=== PATIENT | male | born 1980 | race Hispanic/Latino ===

== ENCOUNTER 2020-06-27 11:07 | Observation (INO) | payer SELFPAY ==
[~2020-06-27 11:07] MED LIST: Iopamidol-370 76% 500 ML 1 ML ONE
[2020-06-27 11:58] LABS: Bilirubin Negative (Negative); Blood, Urine Negative (Negative); Clarity Clear (Clear); Glucose, Urine (Dipstick) Normal (Negative); Ketone, Urine Negative (Negative); Leukocyte Negative Leu/uL (Negative); Nitrite Negative (Negative); Protein, Urine (Dipstick) Negative (Neg-Trace); Specific Gravity, Urine 1.018 (1.002-1.036); Urobilinogen Normal mg/dL (Less than 2)
--- NOTE | 2020-06-27 12:16 | CT ---
CT ABDOMEN AND PELVIS WITH IV CONTRAST 06/27/2020 CLINICAL INFORMATION: Lower abdominal pain with pain now in the epigastric region and right lower quadrant. COMPARISON: Noncontrast CT abdomen and pelvis on 06/01/2013 Technique: Multiple contiguous axial CT images are obtained through the abdomen and pelvis with IV contrast. Cor onal reformatted images are provided. FINDINGS: Lower Chest: Lung bases are clear. Vessels: Vascular calcifications are seen in the right iliac arteries. Abdominal aorta is normal in c aliber without evidence of an aortic dissection. Abdomen: Portal vein:Patent Gallbladder: Within normal limits for CT imaging. Liver: Diminished attenuation suggesting hepatic steatosis with minimal fatty sparing adjacent to the gallbladder. Spleen: within normal limits. Pancreas: There is minimal inflammatory stranding seen adjacent to the lower aspect of the pancreatic head and adjacent to the duodenum. Findings may be related to pancreatitis. There is no adjacent bowel wall thickening to suggest duodenitis. Adrenals: within normal limits. Kidneys: within normal limits. Bowel: Normal caliber. Appendix: The appendix is visualized and normal in caliber. Peritoneum: No ascites or free air; no fluid collection. Mesentery and Retroperitoneum: No enlarged mesenteric or retroperitoneal lymph nodes. Abdominal Wall: within normal limits. Pelvis: Reproductive Organs: No pelvic masses. Bladder: within normal limits. Bones: No suspicious lytic or sclerotic osseous lesions. IMPRESSION: 1. Mild inflammatory stranding seen adjacent to the region of the head of the pancreas and adjacent t o the second and third portions of the duodenum. Findings may be attributable to pancreatitis, and correlation with pancreatic enzymes is recommended. Duodenitis cannot be entirely excluded; although, there is no wall thickening involving the duodenum. No pancreatic or peripancreatic fluid collection is seen. 2. Hepatic steatosis. 3. No CT evidence of appendicitis. 4. Above findings discussed Dr. Power in the emergency department on 06/27/2020 at 1213 hours.
[2020-06-27 12:17] LABS: Hemoglobin 15.2 g/dL (14.0-18.0); Mean Corpuscular HGB CONC 35.5 g/dL (32.0-36.0); Mean Corpuscular Hemoglobin 30.5 pg (27.0-31.0); Mean Corpuscular Volume 85.9 fL (78.0-98.0); Red Blood Cell (RBC) Count 4.99 mill/uL (4.70-6.10)
[2020-06-27 12:23] LABS: #Eosinphils 0.1 thou/uL (0.0-0.7); #Lymphocytes 1.2 thou/uL (1.20-3.40); #Monocytes 0.3 thou/uL (0.11-0.59); #Neutrophils 5.7 thou/uL (1.40-6.50); %Basophils 0.5 % (0.0-1.0); %Eosinophils 1.6 % (0.0-10.0); %Lymphocytes 16.5 % (21.0-51.0); %Monocytes 3.7 % (0.0-10.0); %Neutrophils 77.7 % (42.0-75.0); Platelet Count 115 thou/uL (130-400); Platelet Morphology Comment Appears Decreased; RBC Distribution Width 12.7 % (11.5-14.5); White Blood Cell (WBC) Count 7.3 thou/uL (4.8-10.8)
[2020-06-27] MEDS ORDERED: Morphine 4 MG/ML VIAL ONE (12:53)
[2020-06-27] MEDS ORDERED: Ondansetron PF 4 MG/2 ML Vial ONE (12:53)
[2020-06-27 13:54] LABS: ALT (SGPT) 52 U/L (8-55); AST (SGOT) 37 U/L (5-34); Albumin 4.4 g/dL (3.5-5.0); Alkaline Phosphatase 83 U/L (40-110); Anion Gap 19 mmol/L (10-20); BUN (Urea Nitrogen) 15 mg/dL (8.9-20.6); Bilirubin, Total 0.4 mg/dL (0.2-1.2); Calc. Creatinine Clearance 0 mL/min (70-130); Calcium 8.9 mg/dL (7.8-10.44); Carbon Dioxide 20 mmol/L (22-29); Chloride 106 mmol/L (98-107); Globulin 3.6 g/dL (2.4-3.5); Glucose 136 mg/dL (70-105); Lipase 189 U/L (8-78); Potassium 4.5 mmol/L (3.5-5.1); Sodium 140 mmol/L (136-145)
[2020-06-27] MEDS ORDERED: Ondansetron PF 4 MG/2 ML Vial IVP PRN (17:20)
[2020-06-27] MEDS ORDERED: Acetaminophen 325 MG TAB PO PRN (17:20)
[2020-06-27] MEDS ORDERED: hydrALAZINE 20 MG/ML VIAL SLOW IVP PRN (17:22)
[2020-06-27] MEDS: Sodium Chloride 0.9% 1,000 ML IV SCH (17:49)
--- NOTE | 2020-06-27 19:29 | PDOC.HHP ---
Hospitalist HPI abdominal pain History of Present Illness: Patient is 40 year-old male with no known PMH who presents to the ED with abdominal pain. He says he started having RLQ/LLQ abdominal pain today. The pain radiates to hid RUQ and epigastric area. He denies N/V, diarrhea, fever or chills. He went to the clinic today and was sent to the ED for evaluation of possible appendicitis. He drinks alcohol occasionally. He has not seen a doctor for many years and does not take any prescribed medication. Allergies/Adverse Reactions: Allergy/AdvReac Type Severity Reaction Status Date / Time No Known Allergies Allergy Unverified 06/27/20 17:29 Past History: PMH: no known medical problem Surgical hx: ?surgery for kidney stone Family hx: Mother: DM Social hx: drinks alcohol occasionally. Denies smoking or drug use. Hospitalist HPI ROS Constitutional: denies: fever, chills Eyes: denies: vision change ENT: denies: throat pain Respiratory: denies: shortness of breath Cardiovascular: denies: chest pain Gastrointestinal: reports: abdominal pain. denies: nausea, vomiting, diarrhea Genitourinary: denies: dysuria, frequency Skin: denies: rash Other: Negative for PARRA. Hospitalist Exam General Appearance: NAD, awake alert Eye: PERRL ENT: moist mucosa Neck: supple Heart: RRR, no murmur Respiratory: CTAB, no wheezes, no tachypnea Gastrointestinal: soft, non-distended, normal bowel sounds Gastrointestinal - other findings: diffusely tender with voluntary guarding, no rebound Extremities: no edema Neurological: normal sensation to touch, no weakness Musculoskeletal: normal strength Psychiatric: normal affect Hospitalist Results Result Diagrams: 06/27/20 11:29 06/27/20 11:29 Lab results: Laboratory Last Values WBC 7.3 thou/uL (4.8-10.8) 06/27/20 11: RBC 4.99 mill/uL (4.70-6.10) 06/27/20 11:29 Hgb 15.2 g/dL (14.0-18.0) 06/27/20 11: Hct 42.9 % (42.0-52.0) 06/27/20 11: MCV 85.9 fL (78.0-98.0) 06/27/20 11:29 MCH 30.5 pg (27.0-31.0) 06/27/20 11: MCHC 35.5 g/dL (32.0-36.0) 06/27/20 11: RDW 12.7 % (11.5-14.5) 06/27/20 11: Plt Count 115 thou/uL (130-400) L 06/27/20 11: MPV 11.0 fL (7.4-10.4) H 06/27/20 11: Neutrophils % 77.7 % (42.0-75.0) H 06/27/20 11: Neutrophils % (Manual) Not Reportable 06/27/20 11: Lymphocytes % 16.5 % (21.0-51.0) L 06/27/20 11: Monocytes % 3.7 % (0.0-10.0) 06/27/20 11: Eosinophils % 1.6 % (0.0-10.0) 06/27/20 11: Basophils % 0.5 % (0.0-1.0) 06/27/20 11: Neutrophils # 5.7 thou/uL (1.40-6.50) 06/27/20 11: Lymphocytes # 1.2 thou/uL (1.20-3.40) 06/27/20 11: Monocytes # 0.3 thou/uL (0.11-0.59) 06/27/20 11: Eosinophils # 0.1 thou/uL (0.0-0.7) 06/27/20 11: Basophils # 0.0 thou/uL (0.0-0.2) 06/27/20 11:29 Plt Morphology Comment Appears Decreased L 06/27/20 11: Sodium 140 mmol/L (136-145) 06/27/20 11:29 Potassium 4.5 mmol/L (3.5-5.1) 06/27/20 11: Chloride 106 mmol/L (98-107) 06/27/20 11: Carbon Dioxide 20 mmol/L (22-29) L 06/27/20 11: Anion Gap 19 mmol/L (10-20) 06/27/20 11:29 BUN 15 mg/dL (8.9-20.6) 06/27/20 11:29 Creatinine 0.84 mg/dL (0.7-1.3) 06/27/20 11:29 Estimated GFR (MDRD) Greater than 90 06/27/20 11:29 Glucose 136 mg/dL (70-105) H 06/27/20 11:29 Calcium 8.9 mg/dL (7.8-10.44) 06/27/20 11:29 Total Bilirubin 0.4 mg/dL (0.2-1.2) 06/27/20 11:29 AST 37 U/L (5-34) H 06/27/20 11:29 ALT 52 U/L (8-55) 06/27/20 11:29 Alkaline Phosphatase 83 U/L (40-110) 06/27/20 11:29 Serum Total Protein 8.0 g/dL (6.0-8.3) 06/27/20 11:29 Albumin 4.4 g/dL (3.5-5.0) 06/27/20 11:29 Globulin 3.6 g/dL (2.4-3.5) H 06/27/20 11:29 Albumin/Globulin Ratio 1.2 g/dL (1.2-2.2) 06/27/20 11:29 Lipase 189 U/L (8-78) H 06/27/20 11:29 Urine Color Light-Yellow (Yellow) 06/27/20 11:31 Urine Clarity Clear (Clear) 06/27/20 11:31 Urine pH 7.0 (5.0-9.0) 06/27/20 11:31 Ur Specific Porter 1.018 (1.002-1.036) 06/27/20 11:31 Urine Protein Negative mg/dL (Neg-Trace) 06/27/20 11:31 Urine Glucose (UA) Normal mg/dL (Negative) 06/27/20 11:31 Urine Ketones Negative mg/dL (Negative) 06/27/20 11:31 Urine Blood Negative (Negative) 06/27/20 11:31 Urine Nitrite Negative (Negative) 06/27/20 11:31 Urine Bilirubin Negative (Negative) 06/27/20 11:31 Urine Urobilinogen Normal mg/dL (Less than 2) 06/27/20 11:31 Ur Leukocyte Esterase Negative Walter/uL (Negative) 06/27/20 11:31 Hospitalist H&P A/P (1) Pancreatitis Code(s): K85.90 - ACUTE PANCREATITIS WITHOUT NECROSIS OR INFECTION, UNSP Status: Acute Assessment and Plan: Lipase level mildly elevated. CT A/P showed findings concerning for pancreatitis, duodenitis cannot be ruled out. Plan: -lipid panel -IV fluid -Protonix 40 mg po daily -clear liquid diet
[2020-06-27 20:11] LABS: Cardiac Risk 5.9 (Less than 4.5); Cholesterol 188 mg/dl (< 200 Desired); HDL Cholesterol 32 mg/dL (>60 Neg Risk); Triglycerides 489 mg/dL (Less than 150)
[2020-06-27] MEDS ORDERED: CCU Insulin Drip FS SCH (20:28)
--- NOTE | 2020-06-27 20:29 | PDOC.EVN ---
Event Note - Event Note Event Note: FLP returned. Will transfer to IMU and start insulin drip, CCU protocol. Discussed with Dr. Mo and spoke to CN on tower and CCU.
[2020-06-27] MEDS ORDERED: HUMULIN R 100 UNITS in Sodium Chloride 0.9% 100 ML IVPB SCH (21:00)
[2020-06-27 21:01] VITALS: BMI 36.6
[2020-06-28 01:20] LABS: SARS-CoV-2 PCR by NAA Not Detected (NotDetected)
[2020-06-28] MEDS: Sodium Chloride 0.9% 1,000 ML IV SCH ×3 (01:35→14:52)
[2020-06-28 07:21] LABS: #Eosinphils 0.1 thou/uL (0.0-0.7); #Lymphocytes 1.3 thou/uL (1.20-3.40); #Monocytes 0.3 thou/uL (0.11-0.59); #Neutrophils 2.3 thou/uL (1.40-6.50); %Basophils 0.6 % (0.0-1.0); %Eosinophils 2.2 % (0.0-10.0); %Lymphocytes 31.7 % (21.0-51.0); %Monocytes 7.5 % (0.0-10.0); %Neutrophils 57.9 % (42.0-75.0); Hemoglobin 13.3 g/dL (14.0-18.0); Mean Corpuscular HGB CONC 34.5 g/dL (32.0-36.0); Mean Corpuscular Hemoglobin 30.2 pg (27.0-31.0); Mean Corpuscular Volume 87.4 fL (78.0-98.0); Mean Platelet Volume 10.7 fL (7.4-10.4); Platelet Count 123 thou/uL (130-400); RBC Distribution Width 12.5 % (11.5-14.5); Red Blood Cell (RBC) Count 4.39 mill/uL (4.70-6.10)
[2020-06-28 07:35] LABS: ALT (SGPT) 35 U/L (8-55); AST (SGOT) 16 U/L (5-34); Albumin 3.8 g/dL (3.5-5.0); Alkaline Phosphatase 67 U/L (40-110); Anion Gap 11 mmol/L (10-20); BUN (Urea Nitrogen) 10 mg/dL (8.9-20.6); Bilirubin, Total 0.6 mg/dL (0.2-1.2); Calc. Creatinine Clearance 186 mL/min (70-130); Calcium 8.1 mg/dL (7.8-10.44); Carbon Dioxide 25 mmol/L (22-29); Chloride 107 mmol/L (98-107); Globulin 2.3 g/dL (2.4-3.5); Glucose 99 mg/dL (70-105); Protein, Total 6.1 g/dL (6.0-8.3); Sodium 139 mmol/L (136-145)
--- NOTE | 2020-06-28 15:00 | PDOC.DS.DS ---
Provider Date of Admission: 06/27/20 15:14 Date of Discharge: 06/28/20 Admitting Provider: Taylor Gama MD Primary Care Physician: Unknown Course Hospital Course: Discharge diagnosis: 1. Acute pancreatitis 2. Hypertriglyceridemia 3. COVID-19 test negative Hospital course: Patient is a pleasant 40-year-old gentleman who was admitted to the hospital on June 27, 2020 for acute pancreatitis. He was found to have hypertriglyceridemia. His symptoms resolved shortly after admission. Lipase normalized. He is tolerating diet. He has been started on a statin and is being discharged home in a stable condition. He has been advised to have his liver function tests checked through primary care provider's office while he is on statin. Many thanks for allowing me to participate in your patient's care. Please feel free to contact me with any questions or concerns. Discharge destination: Home Resuscitation Status: 06/27/20 17:20 Resuscitation Status Routine Resuscitation Status: FULL: Full Resuscitation Discussed with: Patient Lab Results: 06/28/20 06:43 06/28/20 06:43 Abnormal Lab Results - Last 48 hrs 06/27/20 11:29: Carbon Dioxide 20 L, AST 37 H, Globulin 3.6 H, Lipase 189 H 06/27/20 11:29: Plt Count 115 L, MPV 11.0 H, Neutrophils % 77.7 H, Lymphocytes % 16.5 L, Plt Morphology Comment Appears Decreased L 06/27/20 19:29: Triglycerides 489 H 06/28/20 06:43: Globulin 2.3 L 06/28/20 06:43: WBC 4.0 L, RBC 4.39 L, Hgb 13.3 L, Hct 38.4 L, Plt Count 123 L, MPV 10.7 H Vitals: Vital Signs (12 hours) Temp Pulse Resp BP Pulse Ox 06/28/20 11:11 97.8 F 71 20 121/85 98 06/28/20 07:45 97.4 F L 59 L 18 143/92 H 96 06/28/20 03:38 97.8 F 70 18 117/78 97 Weight Weight 220 lb 8 oz Physical Exam: The patient was seen and examined on the day of discharge. Patient denies chest pain or shortness of breath. Vital signs are stable. S1 and S2 are heard. Lungs are clear to auscultation bilaterally. Plan Prescriptions: Atorvastatin Calcium [Lipitor] 40 mg PO HS #30 tab Home Medications: Medication Instructions Recorded Confirmed Type Atorvastatin Calcium [Lipitor] 40 mg PO HS #30 tab 06/28/20 Rx Allergies: No Known Allergies Allergy (Unverified 06/27/20 21:15) Discharge Instructions:: Have your liver function tests checked through primary care provider while using statin. Stop this medication if you develop muscle pain or weakness. Activity:: Activity as Tolerated Nourishment:: Heart Healthy Diet Referrals: Unknown,Unknown [Primary Care Provider] - 3 Days Disposition: HOME Quality CORE MEASURES:: N/A
[2020-06-28 16:03] VITALS: BP 128/87; TEMP 98.1
[2020-06-28] MEDS ORDERED: Atorvastatin Calcium 40 MG TAB PO SCH (21:00)
== END 2020-06-28 17:22 | disposition home or self-care (01) ==
LOC: ERS 11:07 → ERHOLD 15:14 → T4-B 19:19
PROVIDERS: ADMIT Internal Medicine; ATTEND Internal Medicine
DX: K85.90 Acute pancreatitis without necrosis or infection, unspecified (principal); E78.1 Pure hyperglyceridemia; K76.0 Fatty (change of) liver, not elsewhere classified; Z20.822 Contact with and (suspected) exposure to COVID-19
CPT/HCPCS: 36415; 74177; 80053; 80061; 81003; 83690; 85025; 87635; 93005; 96374; 96375; G0378; J2270; J2405; Q9967; U0003; U0005

== ENCOUNTER 2020-10-30 21:47 | Observation (INO) | payer BC, OTHER, SELFPAY ==
[2020-10-30] MEDS ORDERED: Ketorolac Tromethamine 30 MG/ML VIAL ONE (22:57)
[2020-10-30 22:58] LABS: Hemoglobin 15.1 g/dL (14.0-18.0); Mean Corpuscular HGB CONC 35.4 g/dL (32.0-36.0); Mean Corpuscular Hemoglobin 30.1 pg (27.0-31.0); White Blood Cell (WBC) Count 4.5 thou/uL (4.8-10.8)
[2020-10-30 23:14] LABS: ALT (SGPT) 42 U/L (8-55); AST (SGOT) 28 U/L (5-34); Albumin 4.4 g/dL (3.5-5.0); Alkaline Phosphatase 87 U/L (40-110); Anion Gap 16 mmol/L (10-20); BUN (Urea Nitrogen) 10 mg/dL (8.9-20.6); Bilirubin, Total 0.4 mg/dL (0.2-1.2); Calc. Creatinine Clearance 0 mL/min (70-130); Calcium 8.8 mg/dL (7.8-10.44); Carbon Dioxide 21 mmol/L (22-29); Chloride 102 mmol/L (98-107); Globulin 3.2 g/dL (2.4-3.5); Glucose 196 mg/dL (70-105); Potassium 3.3 mmol/L (3.5-5.1); Protein, Total 7.6 g/dL (6.0-8.3); Sodium 136 mmol/L (136-145)
[2020-10-30 23:25] LABS: #Lymphocytes 0.7 thou/uL (1.20-3.40); #Monocytes 0.2 thou/uL (0.11-0.59); #Neutrophils 3.6 thou/uL (1.40-6.50); %Eosinophils 0.4 % (0.0-10.0); %Lymphocytes 15.8 % (21.0-51.0); %Monocytes 5.1 % (0.0-10.0); %Neutrophils 78.7 % (42.0-75.0); Large Platelets SLIGHT; MDiff Complete? YES; Mean Platelet Volume 10.9 fL (7.4-10.4); Platelet Count 109 thou/uL (130-400); Platelet Morphology Comment Appears Decreased
[2020-10-31] MEDS ORDERED: cefTRIAXone\\ROCEPHIN 1 GM VIAL ONE (00:22)
[2020-10-31 04:06] LABS: SARS-CoV-2 NAA Rapid Test DETECTED (NotDetected)
[2020-10-31 05:01] LABS: Lactic Acid 1.5 mmol/L (0.5-2.2)
[2020-10-31] MEDS ORDERED: Ondansetron ODT 4 MG TAB SL PRN (06:15)
[2020-10-31] MEDS ORDERED: Ondansetron PF 4 MG/2 ML Vial IVP PRN ×2 (06:15→15:29)
[2020-10-31] MEDS ORDERED: Acetaminophen 325 MG TAB PO PRN (06:15)
[2020-10-31] MEDS ORDERED: Sodium Chloride 0.9% 1,000 ML IV SCH (06:15)
[2020-10-31] MEDS ORDERED: Potassium Chloride 20 MEQ TAB PO SCH (06:30)
[2020-10-31 07:42] VITALS: BMI 39.9
[2020-10-31] MEDS: Benzonatate 100 MG CAP PO PRN ×2 (10:31→20:44)
[2020-10-31] MEDS ORDERED: cefTRIAXone\\ROCEPHIN 1 GM in Sodium Chloride 0.9% 100 ML IVPB SCH (12:00)
[2020-10-31] MEDS: Acetaminophen 325 MG TAB PO PRN (13:52)
[2020-10-31 15:09] LABS: Lactic Acid 1.7 mmol/L (0.5-2.2)
[2020-10-31 15:13] LABS: Cardiac Risk 4.4 (Less than 4.5)
[2020-10-31] MEDS ORDERED: Ondansetron ODT 4 MG TAB PO PRN (15:29)
[2020-10-31] MEDS: Lactated Ringer's 1,000 ML IV SCH ×2 (20:05→20:44)
[2020-10-31] MEDS: Ibuprofen 600 MG TAB PO SCH (20:05)
[2020-11-01] MEDS: Ibuprofen 600 MG TAB PO SCH ×3 (00:10→14:46)
[2020-11-01] MEDS: Acetaminophen 325 MG TAB PO PRN (05:52)
[2020-11-01] MEDS ORDERED: Albuterol Sulfate 2.5 mg/3 ml Neb EZPAP PRN (07:01)
[2020-11-01] MEDS ORDERED: Dexamethasone 4 MG TAB PO SCH (08:00)
[2020-11-01] MEDS: Benzonatate 100 MG CAP PO PRN (08:02)
[2020-11-01] MEDS ORDERED: Enoxaparin Sodium 40 MG/0.4 ML SYRINGE SC SCH (09:00)
[2020-11-01 15:59] VITALS: BP 134/94; TEMP 98.2
== END 2020-11-01 19:05 | disposition home or self-care (01) ==
LOC: ERS 21:47 → T4-B 10-31 02:42
PROVIDERS: ADMIT Emergency Medicine; ATTEND Emergency Medicine
DX: U07.1 COVID-19 (principal); J12.82 Pneumonia due to coronavirus disease 2019; E87.2 Acidosis; E87.6 Hypokalemia; R09.02 Hypoxemia; D69.6 Thrombocytopenia, unspecified; D72.819 Decreased white blood cell count, unspecified; E78.5 Hyperlipidemia, unspecified; R73.9 Hyperglycemia, unspecified; Z87.19 Personal history of other diseases of the digestive system
CPT/HCPCS: 0240U; 36415; 71045; 71046; 80053; 80061; 82728; 83605; 83615; 84145; 85025; 85379; 86140; 87040; 93005; 96365; 96372; 96375; G0378; J0696; J1650; J1885; J8540